=== PATIENT | female | born 1955 | race Caucasian/White ===

== ENCOUNTER → 2016-11-03 | Outpatient (CLI) | payer BC | LOC: LAB 07:22 | PROVIDERS: ATTEND Internal Medicine Critical Care Medicine | DX: B44.81 Allergic bronchopulmonary aspergillosis (principal); J45.998 Other asthma; J47.9 Bronchiectasis, uncomplicated; J30.9 Allergic rhinitis, unspecified | CPT/HCPCS: 87070; 87205 ==

== ENCOUNTER → 2017-03-24 | Outpatient (CLI) | payer BC ==
--- NOTE | 2017-03-24 10:32 | Diagnostic Imaging Report ---
PROCEDURE: CT sinuses without contrast TECHNIQUE: Multiple contiguous axial images were obtained through the sinuses without the use of intravenous contrast. Coronal and sagittal reformations were then performed. INDICATION: Sinus infection. FINDINGS: There is minimal mucosal thickening seen in the right mid ethmoidal air cells. The remaining ethmoidal air cells are clear. The maxillary sinuses are generally clear. There is evidence of prior sinonasal surgery suggested widening the drainage pathway of the maxillary sinuses on both sides which appears widely patent. The sphenoidal sinuses and frontal sinuses are clear. The mastoid air cells and middle ear cavities are clear. The nasal cavity demonstrates septal nasal deviation to the right side. There is mild mucosal thickening along the inferior turbinates. The nasal passages are patent. IMPRESSION: Minimal sinus disease. Suggestion of prior sinonasal surgery. Correlate with surgical history. Dictated by: Dictated on workstation # [id number]
== END ==
LOC: RAD 09:49
PROVIDERS: ATTEND Internal Medicine Critical Care Medicine
DX: J32.9 Chronic sinusitis, unspecified (principal)
CPT/HCPCS: 70486

== ENCOUNTER → 2017-04-09 | Outpatient (CLI) | payer BC ==
[~2017-04-09] MED LIST: RT-ALBUTEROL SULF 2.5 MG/3 ML PRE-MIX VIAL IH ONE
== END ==
LOC: RT 09:44
PROVIDERS: ATTEND Nurse Practitioner Family
DX: J45.909 Unspecified asthma, uncomplicated (principal); J47.9 Bronchiectasis, uncomplicated
CPT/HCPCS: 94060; 94726; 94729

== ENCOUNTER → 2017-04-24 | Outpatient (CLI) | payer BC ==
--- NOTE | 2017-04-24 13:09 | Diagnostic Imaging Report ---
PROCEDURE: CT chest without contrast. TECHNIQUE: Multiple contiguous axial images were obtained through the chest without the use of intravenous contrast. INDICATION: COPD, shortness of breath. FINDINGS: There is a peripheral area of consolidation seen in the lateral aspect of the right middle lobe measuring 4.1 x 1.1 x 3.7 cm. This could relate to pneumonia. In addition, there is minimal atelectasis in the lung bases anteriorly. There is no bronchiectasis or emphysema changes. No pleural or pericardial effusion. No significantly enlarged lymph nodes and no lymphadenopathy in the axilla. The thoracic aorta is normal in caliber. The osseous structures appear grossly unremarkable. IMPRESSION: Peripheral consolidation involving the lateral aspect of the right middle lobe may relate to pneumonia. Correlate clinically and with followup exam in four/six weeks to ensure resolution. Report was stat faxed to office of Silvia Porter APRN, @ 1:07 PM/mayra. Dictated by: Dictated on workstation # [id number]
== END ==
LOC: RAD 12:22
PROVIDERS: ATTEND Nurse Practitioner Family
DX: J47.9 Bronchiectasis, uncomplicated (principal); J44.9 Chronic obstructive pulmonary disease, unspecified
CPT/HCPCS: 71250

== ENCOUNTER 2017-05-19 13:41 | Emergency (ER) | payer BC ==
[~2017-05-19] VITALS: Ht 167.6 cm; Wt 79.4 kg
--- OUTSIDE RECORDS SUMMARY | 2017-05-19 14:09 | XMS REPORT ---
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 Problem terminal operator current use of insulin Z79.4 Active Problem Depression, major, recurrent, in remission F33.40 Active Assessment skilled nursing current use of insulin Z79.4 Active Assessment Allergic reaction caused by a drug, initial encounter T78.40XA Active Problem Osteoporosis M81.0 Active Assessment Diabetes 1.5, 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 Medications Medication Code System Code Instructions Start Date End Date Status Dosage Calcium 600+D [facility] [address]-66 May 18, 2011 SI tab(s) once a day Advair HFA [facility] [address]-28 115-21 MCG/ACT Inhalation Twice a day 2 puffs Temazepam [facility] [address]-58 30 mg May 18, 2011 SIG: PRN( as needed for sleep) Prilosec [facility] [address]-32 20 MG Orally Once a day 1 capsule Multivitamin [facility] [address] May 18, 2011 SIG: once a day Trulicity [facility] [address]-49 0.75 MG/0.5ML Subcutaneous once per week ( FridaysMar 01, 2016 Jun 29, 2016 0.5 ml O-Prcrzs-L-Cysteine [facility] [address]-37 600 MG Orally 2 X Day 1 capsule with a meal Lisinopril [facility] [address]-01 20 mg Orally Once a day May 18, 2011 1 tablet Levemir [facility] [address]-06 100 UNIT/ML Subcutaneous once a day Jan 09, 2016 20 units Montelukast Sodium [facility] [address]-76 10 MG Orally Once a day 1 tablet Claritin [facility] [address]-43 10 mg May 18, 2011 SI cap(s) once a day Zoloft [facility] [address]-40 50 mg Orally Once a day Feb 20, 2016 1 tablet Simvastatin [facility] [address]-06 20 mg Orally Once a day Feb 06, 2016 1 tablet in the evening NovoLog [facility] [address]-21 100 UNIT/ML Subcutaneous 3 times a day with meals Jan 09, 2016 5-15 units omega-3 polyunsaturated fatty acids [facility] 0 May 18, 2011 SI cap (s) once a day Ventolin [facility] 0 May 18, 2011 SIG: PRN(as needed for wheezing) Flonase [facility] 0 May 18, 2011 SI spray(s) intranasally once a day Procedures Procedure Coding System Code Date Office Visit, Est Pt., Level 3 CPT-4 30545 Mar 01, 2016 Vital Signs Date/Time: Mar 01, 2016 Cardiac Monitoring Heart Rate 88 bpm Weight 223.1 lbs Height 68 in BMI 33.92 Index Blood Pressure Diastolic 68 mmHg Blood Pressure Systolic 124 mmHg Results No Known Results Summary Purpose eClinicalWorks Submission
--- OUTSIDE RECORDS SUMMARY | 2017-05-19 14:09 | XMS REPORT ---
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 409421361 Assessment Type 1 diabetes mellitus with complication E10.8 Jan, Active 111001307 Problem retirement current use of insulin Z79.4 Active 454015957 Problem Osteoporosis M81.0 Active 42441808 ALLERGIES Unknown Allergies SOCIAL HISTORY No smoking Hx information available PLAN OF CARE VITAL SIGNS MEDICATIONS Unknown Medications RESULTS Name Result Date Reference Range LIPID PANEL 2016-01-31 Cholesterol, Total 242 100-199 Triglycerides 56 0-149 HDL Cholesterol 101 >39 VLDL Cholesterol Yash 11 5-40 LDL Cholesterol Calc 130 0-99 Comment: PROCEDURES Procedure Date Ordered Related Diagnosis Body Site ROUTINE VENIPUNCTURE 2016-01-31 N/A LIPID PANEL Jan 31, 2016 VENIPUNCT, ROUTINE* Jan 31, 2016 IMMUNIZATIONS No Known Immunizations
--- OUTSIDE RECORDS SUMMARY | 2017-05-19 14:09 | XMS REPORT ---
Author Author AURELIANO BOOKER Organization [employer] Address Unknown Phone Unavailable Care Team Providers Care Air Tool Operator Name Role Phone AURELIANO BOOKER Unavailable Allergies No Known Allergies Problems Problem Type Condition Code Onset Dates Condition Status Problem Need for prophylactic vaccination and inoculation, Influenza V04.81 Active Assessment Encounter for immunization Z23 Active Problem Acute sinusitis, unspecified 461.9 Active Medications No Known Medications Procedures Procedure Coding System Code Date SINGLE IMMUNIZATION ADMIN CPT-4 71631 Mar 06, 2015 FLUARIX QUAD (3 & UP)-GSK-2014 CPT-4 93297 Mar 06, 2015 Results No Known Results Immunizations Vaccine Administration Date FLUARIX QUAD (3 & UP)-GSK-2014Mar 06, 2015 Summary Purpose eClinicalWorks Submission
--- OUTSIDE RECORDS SUMMARY | 2017-05-19 14:09 | XMS REPORT ---
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 491082616 Assessment Encounter for immunization Z23 Jan, Active 838626003 Assessment Diabetes 1.5, managed as type 1 E13.9 Jan, Active 483298155 Problem retirement current use of insulin Z79.4 Active 739057248 Problem Osteoporosis M81.0 Active 63879407 ALLERGIES Substance Reaction Event Type Date Status Sulfa Drug rash Non Drug Allergy Jan, Active Pain Medication nausea and vomiting Non Drug Allergy Jan, Active SOCIAL HISTORY No smoking Hx information available PLAN OF CARE VITAL SIGNS Height 68 in 2016-02-06 Weight 229 lbs 2016-02-06 Heart Rate 88 bpm 2016-02-06 Respiratory Rate 16 2016-02-06 BMI 34.82 kg/m2 2016-02-06 Blood pressure systolic 130 mmHg 2016-02-06 Blood pressure diastolic 76 mmHg 2016-02-06 MEDICATIONS Medication Instructions Dosage Frequency Start Date End Date Duration Status Lisinopril 20 mg Orally Once a day 1 tablet 24h May, Active omega-3 polyunsaturated fatty acids SI cap(s) once a day May, Active Calcium 600+D SI tab(s) once a day May, Active Victoza 18 MG/3ML Subcutaneous Once a day 0.6mg x1 week then 1.2mg 24h Jan, Active Ventolin SIG: PRN(as needed for wheezing) May, Active Flonase SI spray(s) intranasally once a day May, Active Claritin 10 mg SI cap(s) once a day May, Active Simvastatin 20 mg Orally Once a day 1 tablet in the evening 24h Jan, Active W-Yxfwql-O-Cysteine 600 MG Orally 2 X Day 1 capsule with a meal Active Advair HFA 115-21 MCG/ACT Inhalation Twice a day 2 puffs 12h Active NovoLog 100 UNIT/ML Subcutaneous 3 times a day with meals 5-15 units Dec, Active Montelukast Sodium 10 MG Orally Once a day 1 tablet 24h Active Multivitamin SIG: once a day May, Active Levemir 100 UNIT/ML Subcutaneous once a day 20 units 24h Dec, Active Temazepam 30 mg SIG: PRN(as needed for sleep) May, Active Metformin HCl 500 MG Orally Twice a day (FOLLOW UP APR) 1 tablet Dec, Active Prilosec 20 MG Orally Once a day 1 capsule 24h Active RESULTS Name Result Date Reference Range A1C (IN HOUSE) 2016-02-06 A1C IN HOUSE 8.1 4.3 - 5.6 % Previous A1c Lot [id number] Exp date 11/26 MICROALBUMIN, URINE (IN HOUSE) 2016-02-06 MICROALBUMIN normal Lot # [id number] Exp date 03/28 Clarity clear Color yellow ALB 10mg/L CRE 50mg/dL A:C (IN HOUSE) <30mg/g Control Control Lot # Exp date PROCEDURES Procedure Date Ordered Related Diagnosis Body Site GLYCATED HEMOGLOBIN TEST Feb 06, 2016 MICROALBUMIN, SEMIQUANT Feb 06, 2016 SINGLE IMMUNIZATION ADMIN Feb 06, 2016 FLUARIX QUAD P-FREE 3 AND UP .50 2015Feb 06, 2016 Office Visit, Est Pt., Level 4 Feb 06, 2016 IMMUNIZATIONS Vaccine Route Administration Date Status FLUARIX QUAD P-FREE 3 AND UP .50 2015 IM Intramuscular Feb 06, 2016 Administered
--- OUTSIDE RECORDS SUMMARY | 2017-05-19 14:09 | XMS REPORT ---
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
--- OUTSIDE RECORDS SUMMARY | 2017-05-19 14:09 | XMS REPORT ---
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 [address]-43 50 mg Orally Once a day Feb 20, 2016 1 tablet Results No Known Results Summary Purpose eClinicalWorks Submission
--- OUTSIDE RECORDS SUMMARY | 2017-05-19 14:09 | XMS REPORT ---
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
--- OUTSIDE RECORDS SUMMARY | 2017-05-19 14:09 | XMS REPORT ---
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
--- OUTSIDE RECORDS SUMMARY | 2017-05-19 14:09 | XMS REPORT ---
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 047238592 Problem Asthma, severe J45.998 Active 683141317 Problem Depression, major, recurrent, in remission F33.40 Active 58799012 ALLERGIES Substance Reaction Event Type Date Status Sulfa Drug rash Non Drug Allergy May, Active Pain Medication nausea and vomiting Non Drug Allergy May, Active SOCIAL HISTORY No smoking Hx information available PLAN OF CARE Activity Details Follow Up prn Reason:next DM visit VITAL SIGNS Height 68 in 2016-06-05 Temperature 97.4 degrees Fahrenheit 2016-06-05 Heart Rate 106 bpm 2016-06-05 Respiratory Rate 18 2016-06-05 Blood pressure systolic 132 mmHg 2016-06-05 Blood pressure diastolic 68 mmHg 2016-06-05 MEDICATIONS Medication Instructions Dosage Frequency Start Date End Date Duration Status Prilosec 20 MG Orally Once a day 1 capsule 24h Active Multivitamin SIG: once a day May, Active Doxycycline Monohydrate 100 mg Orally every 12 hrs 1 capsule 12h May, Jun, 10 days Active Ventolin SIG: PRN(as needed for wheezing) May, Active Lisinopril 20 mg Orally Once a day 1 tablet 24h May, Active Prolia 60 MG/ML Subcutaneous every 6 months 60mg Jan, Active Simvastatin 20 mg Orally Once a day 1 tablet in the evening 24h Jan, Active Levemir 100 UNIT/ML 25 units Active NovoLog 100 UNIT/ML Subcutaneous 3 times a day with meals 5-15 units Dec, Active Flonase SI spray(s) intranasally once a day May, Active Advair HFA 115-21 MCG/ACT Inhalation Twice a day 2 puffs 12h Active Trulicity 0.75 MG/0.5ML Subcutaneous once per week (FRIDAYS 0.5 ml FebJun, 30 day(s) Active Levemir 100 UNIT/ML Subcutaneous once a day 20 units 24h Dec, Active Montelukast Sodium 10 MG Orally Once a day 1 tablet 24h Active G-Anzbvr-O-Cysteine 600 MG Orally 2 X Day 1 capsule with a meal Active Simvastatin 20 MG Orally Once a day 1 tablet in the evening 24h Active Zoloft 50 mg Orally Once a day 1 tablet 24h Active omega-3 polyunsaturated fatty acids SI cap(s) once a day May, Active Zoloft 50 mg Orally Once a day 1 tablet 24h Feb, Active Montelukast Sodium 10 MG TAKE ONE TABLET BY MOUTH ONCE DAILY. 30 Active NovoLog 100 UNIT/ML INJECT 5-15 UNITS 3 TIMES A DAY WITH MEALS SUBCUTANEOUSLY 22 Active Claritin 10 mg SI cap(s) once a day May, Active Calcium 600+D SI tab(s) once a day May, Active RESULTS No Results PROCEDURES Procedure Date Ordered Related Diagnosis Body Site Office Visit, Est Pt., Level 3 Jun 05, 2016 IMMUNIZATIONS No Known Immunizations
--- OUTSIDE RECORDS SUMMARY | 2017-05-19 14:10 | XMS REPORT ---
Author ENOCH De Jesus [facility] eClinicalWorks Address Unknown Phone Unavailable Care Team Providers Care Substation Operator Chief Name Role Phone ENOCH LALA Unavailable Allergies, Adverse Reactions, Alerts Substance Reaction Event Type Sulfa Drug Info Not Available Non Drug Allergy Pain Medication Info Not Available Non Drug Allergy Problems Problem Type Condition Code Onset Dates Condition Status Assessment Benign essential hypertension I10 Active Assessment Osteoporosis M81.0 Active Assessment Type 1 diabetes mellitus with complication E10.8 Active Assessment Allergic rhinitis, unspecified allergic rhinitis trigger, unspecified rhinitis seasonality J30.9 Active Assessment Moderate persistent asthma without complication J45.40 Active Assessment Gastroesophageal reflux disease without esophagitis K21.9 Active Medications Medication Code System Code Instructions Start Date End Date Status Dosage Advair HFA [facility] [address]-22 115-21 MCG/ACT Inhalation Twice a day 2 puffs Lisinopril [facility] [address]-72 20 mg May 18, 2011 SIG: once a day Metformin HCl [facility] [address]-95 500 MG Orally Twice a day Jan 09, 2016 1 tablet with meals Flonase [facility] 0 May 18, 2011 SI spray(s) intranasally once a day Temazepam [facility] [address]-29 30 mg May 18, 2011 SIG: PRN( as needed for sleep) Ventolin [facility] 0 May 18, 2011 SIG: PRN(as needed for wheezing) Calcium 600+D [facility] [address]-53 May 18, 2011 SI tab(s) once a day Multivitamin [facility] [address] May 18, 2011 SIG: once a day Montelukast Sodium [facility] [address]-80 10 MG Orally Once a day 1 tablet Prilosec [facility] [address]-35 20 MG Orally Once a day 1 capsule omega-3 polyunsaturated fatty acids [facility] 0 May 18, 2011 SI cap (s) once a day B-Zcohas-L-Cysteine [facility] [address]-38 600 MG Orally 2 X Day 1 capsule with a meal Claritin [facility] [address]-17 10 mg May 18, 2011 SI cap(s) once a day NovoLog [facility] [address]-98 100 UNIT/ML Subcutaneous 3 times a day with meals Jan 09, 2016 5-15 units Levemir [facility] [address]-25 100 UNIT/ML Subcutaneous once a day Jan 09, 2016 20 units Procedures Procedure Coding System Code Date COMPREHEN METABOLIC PANEL CPT-4 22210 Jan 09, 2016 ASSAY THYROID STIM HORMONE CPT-4 18571 Jan 09, 2016 COMPLETE CBC W/AUTO DIFF WBC CPT-4 64818 Jan 09, 2016 VENIPUNCT, ROUTINE* CPT-4 10290 Jan 09, 2016 ASSAY OF VITAMIN D CPT-4 89352 Jan 09, 2016 Office Visit, New Pt., Level 4 CPT-4 14395 Jan 09, 2016 Vital Signs Date/Time: Jan 09, 2016 Cardiac Monitoring Heart Rate 103 bpm Weight 226.4 lbs Height 68 in BMI 34.42 Index Blood Pressure Diastolic 78 mmHg Blood Pressure Systolic 142 mmHg Results No Known Results Summary Purpose eClinicalWorks Submission
--- OUTSIDE RECORDS SUMMARY | 2017-05-19 14:10 | XMS REPORT ---
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 911322746 Problem Asthma, severe J45.998 Active 631098219 Problem Depression, major, recurrent, in remission F33.40 Active 01681137 ALLERGIES Substance Reaction Event Type Date Status Sulfa Drug rash Non Drug Allergy Jul, Active Pain Medication nausea and vomiting Non Drug Allergy Jul, Active SOCIAL HISTORY Never Assessed PLAN OF CARE Activity Details Follow Up 3 Months Reason:DM visit VITAL SIGNS Height 68 in 2016-07-18 Weight 224.1 lbs 2016-07-18 Temperature 97.7 degrees Fahrenheit 2016-07-18 Heart Rate 80 bpm 2016-07-18 Respiratory Rate 16 2016-07-18 BMI 34.07 kg/m2 2016-07-18 Blood pressure systolic 124 mmHg 2016-07-18 Blood pressure diastolic 70 mmHg 2016-07-18 MEDICATIONS Medication Instructions Dosage Frequency Start Date End Date Duration Status Zoloft 50 mg Orally Once a day 1 tablet 24h Feb, Active Multivitamin SIG: once a day May, Active Simvastatin 20 MG Orally Once a day 1 tablet in the evening 24h Active Calcium 600+D SI tab(s) once a day May, Active G-Vjslki-K-Cysteine 600 MG Orally 2 X Day 1 capsule with a meal Active NovoLog 100 UNIT/ML Subcutaneous 3 times a day (340b PRICING) 5-15 units Dec, Active Levemir 100 UNIT/ML Subcutaneous Once a day (340b) INJECT 22 UNITS ONCE A DAY SUBCUTANEOUSLY Active Symbicort 160-4.5 MCG/ACT Inhalation Twice a day ([place] CARD)_ 2 puffs Jul, Active omega-3 polyunsaturated fatty acids SI cap(s) once a day May, Active Prilosec 20 MG Orally Once a day 1 capsule 24h Active Trulicity 0.75 MG/0.5ML Subcutaneous ONCE A WEEK (savings card) 0.5 ml Active Montelukast Sodium 10 MG Orally Once a day 1 tablet 24h Active Ventolin SIG: PRN(as needed for wheezing) May, Active Lisinopril 20 mg Orally Once a day 1 tablet 24h May, Active RESULTS Name Result Date Reference Range A1C (IN HOUSE) 2016-07-18 A1C IN HOUSE 7.6 4.3 - 5.6 % Previous A1c 8.1 Lot [id number] Exp date 03/2018 PROCEDURES Procedure Date Ordered Result Body Site ROUTINE VENIPUNCTURE 2016-07-18 N/A GLYCATED HEMOGLOBIN TEST July 18, 2016 COMPREHEN METABOLIC PANEL July 18, 2016 IMMUNIZATIONS No Known Immunizations MEDICAL (GENERAL) HISTORY Type Description Date Medical History Hypertension Medical History Diabetes- Insulin dependent dx age 21s (Dr. Martinez) Medical History High cholesterol Medical History Mitrovalve prolapse Medical History Osteoporosis- DEXA 2015 (cannot take Fosamax Medical History Asthma- severe (Vasquez) Medical History Bronchiectasis/Bronchiolitis Medical [facility] Medical History History of Depression- was taking Zoloft Surgical History Impacted [facility] 1975 Surgical History Tonsilectomy 11 years old Surgical History Bladder Tumor nonmalignant 1985 Surgical History Sinus Surgery 2009 Surgical History Repair of fracture patella left after fall 05/2016 Hospitalization History Pnuemonia 1999 Hospitalization History Left foot 5th metatarsal 11/28/2015 Hospitalization History [facility] -Left Patella Fx 05/2016
--- OUTSIDE RECORDS SUMMARY | 2017-05-19 14:10 | XMS REPORT | Continuity of Care Document ---
Author Author [facility] Address Unknown Phone Unavailable Allergies There is no data. Medications There is no data. Problems Date Dx Coded Attending Type Code Diagnosis Diagnosed By 01/15/2011 ADDY THOMPSON DO V74.1 TB SCREENING 05/18/2011 ADDY THOMPSON DO 461.9 SINUSITIS ACUTE 03/24/2013 ADYD THOMPSON DO V04.81 FLU SHOT Procedures There is no data. Results There is no data. Encounters ACCT No. Visit Date/Time Discharge Status Pt. Type Provider Facility Loc./Unit Complaint [id number] 03/24/2013 14:17:00 03/24/2013 23:59:59 CLS Outpatient ADDY THOMPSON DO
[2017-05-19] MEDS ORDERED: DOXY100C2 (14:23)
[2017-05-19] MEDS ORDERED: OSEL75CA15 (14:23)
[2017-05-19] MEDS ORDERED: INSU100V5 (14:23)
[2017-05-19] MEDS ORDERED: KETOROLAC 30 MG/ML VIAL IM ONE (14:45)
--- NOTE | 2017-05-19 14:46 | ED Respiratory ---
General Chief Complaint: Cough/Cold/Flu Symptoms Stated Complaint: WHEEZING,COUGHING Nursing Triage Note: ARRIVED VIA AMB TO ROOM 08. COMPLAINS OF NOT FEELING WELL FOR SEVERAL DAYS. HAS BEEN TESTED FOR THE FLU WHICH WAS NEG. STATES SHE STILL DOES NOT FEEL WELL AND HAS DEVELOPED A WHEEZE. HAS BEEN ON TAMIFLU AND HAD HER THROAT STRETCHED ON FRIDAY. CALLED [facility] OFFICE WHO TOLD HER TO COME TO THE ER. (BERNICE STARKS MEDICAL STUDENT) History of Present Illness Time seen by provider: 14:39 Initial Comments Pt is a 61 yo female with a PMH of Asthma, COPD, Aspergillosis c/o flu-like sx for the past 4 days. Pt states that she had been exposed to known Influenza contact (her mother) and on Friday went to an urgent care and received Tamiflu and Doxycycline, which she is still taking. Reports that her fevers and chills got better but she developed worsening wheezing and SOB. Pt has taken her Symbicort and Spiriva 4 times today, last at noon. Pt today is c/o sore throat, myalgias, cough, and SOB. Denies any CP, N/V/D, hemoptysis, or any other associated sx. (BERNICE STARKS MEDICAL STUDENT) Initial Comments I saw and examined the patient alongside the student doctor and agree with the history and physical exam. (JESSY LORENZ) Allergies and Home Medications Allergies Coded Allergies: Sulfa (Sulfonamide Antibiotics) (Verified Allergy, Unknown, RASH, 03/07/17 ) Home Medications Doxycycline Hyclate 100 Mg Capsule, (Reported) Insulin Determir 1,000 Units/10 Ml Soln, (Reported) Oseltamivir Phosphate 75 Mg Capsule, (Reported) Constitutional: chills, malaise EENTM: throat pain, No ear discharge, No hearing loss, No eye pain, No vision loss Respiratory: cough, dyspnea on exertion, No hemoptysis, short of breath, No stridor, wheezing Cardiovascular: No chest pain, No edema, No palpitations Gastrointestinal: No abdominal pain, No constipation, No diarrhea, No nausea, No vomiting Genitourinary: no symptoms reported, No dysuria, No frequency Musculoskeletal: no symptoms reported, No back pain, No joint pain Skin: no symptoms reported, No change in color, No change in hair/nails, No dryness Psychiatric/Neurological: No Symptoms Reported Hematologic/Lymphatic: No Symptoms Reported Immunological/Allergic: no symptoms reported (BERNICE STARKS MEDICAL STUDENT) All Other Systems Reviewed Negative Unless Noted: Yes (BERNICE STARKS MEDICAL STUDENT) Past Amcgtzq-Yaccmi-Zoknme Hx Patient Social History Recent Foreign Travel: No Contact w/Someone Who Travel: No Recent Infectious Disease Expo: No Recent Hopitalizations: No (BERNICE STARKS MEDICAL STUDENT) Seasonal Allergies Seasonal Allergies: Yes (BERNICE STARKS MEDICAL STUDENT) Surgeries History of Surgeries: Yes (DENTAL, THROAT STRETCHED) Surgeries: Nose, Orthopedic, Tonsillectomy (BERNICE STARKS MEDICAL STUDENT) Respiratory History of Respiratory Disorde: Yes Respiratory Disorders: Asthma, Chronic Bronchitis, COPD (BERNICE STARKS MEDICAL STUDENT) Cardiovascular History of Cardiac Disorders: Yes Cardiac Disorders: High Cholesterol, Hypertension (BERNICE STARKS MEDICAL STUDENT) Neurological History of Neurological Disord: No (BERNICE STARKS MEDICAL STUDENT) Genitourinary History of Genitourinary Disor: No (BERNICE STARKS MEDICAL STUDENT) Gastrointestinal History of Gastrointestinal Di: No (BERNICE STARKS MEDICAL STUDENT) Musculoskeletal History of Musculoskeletal Dis: No (BERNICE STARKS MEDICAL STUDENT) Endocrine History of Endocrine Disorders: Yes Endocrine Disorders: Diabetes, Insulin dep (BERNICE STARKS MEDICAL STUDENT) Cancer History of Cancer: No (BERNICE STARKS MEDICAL STUDENT) Psychosocial History of Psychiatric Problem: No (BERNICE STARKS MEDICAL STUDENT) Physical Exam Vital Signs Vital Sign - Last 12Hours 05/19/17 05/19/17 14:05 15:04 Temp 97.7 Pulse 90 Resp 18 B/P (MAP) 145/67 (93) Pulse Ox 98 O2 Delivery Room Air (JESSY LORENZ) Vital Signs Capillary Refill : Less Than 3 Seconds (BERNICE STARKS MEDICAL STUDENT) General Appearance: no apparent distress, other (ill-in appearance) HEENT: PERRL/EOMI, normal ENT inspection, TMs normal, No tonsillar exudate, other (dry mucous membranes) Neck: non-tender, full range of motion, supple, normal inspection Respiratory: chest non-tender, no respiratory distress, No crackles, No rales, No rhonchi, wheezing Cardiovascular: normal peripheral pulses, regular rate, rhythm, no edema, no murmur Gastrointestinal: normal bowel sounds, non tender, soft, no organomegaly, No guarding, No rebound Extremities: normal range of motion, normal inspection Neurologic/Psychiatric: alert, normal mood/affect, oriented x 3 Skin: damp, No ecchymosis, No pallor (BERNICE STARKS MEDICAL STUDENT) General Appearance: mild distress Eyes: Bilateral Eye Normal Inspection, Bilateral Eye PERRL, Bilateral Eye EOMI (JESSY LORENZ) Progress/Results/Core Measures Suspected Sepsis Recent Fever Within 48 Hours: No Infection Criteria Present: Suspected New Infection New/Unexplained Altered Menta: No Sepsis Screen: No Definite Risk Sepsis Diagnosis: SIRS Temperature:97.7 Pulse: 90 Respiratory Rate: 18 Laboratory Tests 05/19/17 14:47: White Blood Count 8.4 Blood Pressure 145 /67 Mean: 93 Laboratory Tests 05/19/17 14:47: Platelet Count 229 (BERNICE STARKS MEDICAL STUDENT) Results/Orders Lab Results Laboratory Tests Test 05/19/17 14:47 05/19/17 14:58 Range/Units White Blood Count 8.4 4.3-11.0 10^3/uL Red Blood Count 4.61 4.35-5.85 10^6/uL Hemoglobin 13.7 11.5-16.0 G/DL Hematocrit 44 35-52 % Mean Corpuscular Volume 96 80-99 FL Mean Corpuscular Hemoglobin 30 25-34 PG Mean Corpuscular Hemoglobin Concent 31 L 32-36 G/DL Red Cell Distribution Width 13.3 10.0-14.5 % Platelet Count 229 130-400 10^3/uL Mean Platelet Volume 10.7 H 7.4-10.4 FL Neutrophils (%) (Auto) 73 42-75 % Lymphocytes (%) (Auto) 15 12-44 % Monocytes (%) (Auto) 11 0-12 % Eosinophils (%) (Auto) 1 0-10 % Basophils (%) (Auto) 0 0-10 % Neutrophils # (Auto) 6.1 1.8-7.8 X 10^3 Lymphocytes # (Auto) 1.3 1.0-4.0 X 10^3 Monocytes # (Auto) 1.0 0.0-1.0 X 10^3 Eosinophils # (Auto) 0.0 0.0-0.3 10^3/uL Basophils # (Auto) 0.0 0.0-0.1 10^3/uL Sodium Level 137 135-145 MMOL/L Potassium Level 3.8 3.6-5.0 MMOL/L Chloride Level 99 98-107 MMOL/L Carbon Dioxide Level 25 21-32 MMOL/L Anion Gap 13 5-14 MMOL/L Blood Urea Nitrogen 11 7-18 MG/DL Creatinine 0.83 0.60-1.30 MG/DL Estimat Glomerular Filtration Rate > 60 BUN/Creatinine Ratio 13 Glucose Level 380 H 70-105 MG/DL Calcium Level 9.1 8.5-10.1 MG/DL Total Bilirubin 0.3 0.1-1.0 MG/DL Aspartate Amino Transf (AST/SGOT) 28 5-34 U/L Alanine Aminotransferase (ALT/SGPT) 28 0-55 U/L Alkaline Phosphatase 87 40-136 U/L C-Reactive Protein High Sensitivity 1.19 H 0.00-0.50 MG/DL Total Protein 6.7 6.4-8.2 GM/DL Albumin 3.6 3.2-4.5 GM/DL Blood Gas Puncture Site L BRACH Blood Gas Patient Temperature 97.1 Arterial Blood pH 7.42 7.37-7.43 Arterial Blood Partial Pressure CO2 41 35-45 MMHG Arterial Blood Partial Pressure O2 69 L 79-93 MMHG Arterial Blood HCO3 26 23-27 MMOL/L Arterial Blood Total CO2 27.3 21.0-31.0 MMOL/L Arterial Blood Oxygen Saturation 96 94-100 % Arterial Blood Base Excess 1.8 -2.5-2.5 MMOL/L Ajay Test YES-POS Blood Gas Ventilator Setting NO Blood Gas Inspired Oxygen RA (JESSY LORENZ) My Orders Orders - JESSY LORENZ Cbc With Automated Diff (05/19/17 14:38) Comprehensive Metabolic Panel (05/19/17 14:38) Hs C Reactive Protein (05/19/17 14:38) Chest Pa/Lat (2 View) (05/19/17 14:38) Ketorolac Injection (Toradol Injection) (05/19/17 14:45) Albuterol Pre-Mix Nebs (Rt) (Proventil (05/19/17 14:47) Albuterol/Ipra Inhalation Soln (Duoneb I (05/19/17 15:00) Svn Sm Volume Nebulizer Rt-Rfs (05/19/17 14:47) Albuterol Pre-Mix Nebs (Rt) (Proventil (05/19/17 14:48) Albuterol/Ipra Inhalation Soln (Duoneb I (05/19/17 14:48) Arterial Blood Gas (05/19/17 14:58) (JESSY LORENZ) Medications Given in ED Current Medications Medications Dose Ordered Sig/[place] Route Start Time Stop Time Status Last Admin Dose Admin Albuterol/ Ipratropium 3 ml STK-MED ONCE .ROUTE 05/19/17 14:48 05/19/17 14:51 DC 05/19/17 15:00 3 ML Ketorolac Tromethamine 15 mg ONCE ONCE IM 05/19/17 14:45 05/19/17 14:46 DC 05/19/17 14:46 15 MG (JESSY LORENZ) Vital Signs/I&O Vital Sign - Last 12Hours 05/19/17 05/19/17 14:05 15:04 Temp 97.7 Pulse 90 Resp 18 B/P (MAP) 145/67 (93) Pulse Ox 98 96 O2 Delivery Room Air (JESSY LORENZ) Vital Signs/I&O Capillary Refill : Less Than 3 Seconds (BERNICE STARKS MEDICAL STUDENT) Blood Pressure Mean: 93 Progress Note #1: Time: 14:59 Progress Note I examine the patient alongside with the medical student and agree with his history, review of systems and physical exam. I agree with assessment and plan that the patient likely has influenza suggested being treated for outpatient and with this level of albuterol 4 times a day she is still quite wheezy audibly so we'll start with some albuterol and DuoNeb given ABG and consider inpatient management. We'll also get an x-ray basic labs looking for possibility of pneumonia despite her doxycycline use. Progress Note #2: Time: 16:27 Progress Note Patient's breathing is significantly improved after the breathing treatment over she still having a little wheezing. She has known influenza. She may benefit from a low-dose steroid for her COPD. She should continue her doxycycline and finish out the Tamiflu. She has some questionable infiltrates seen on chest x-ray which are not very appreciable but the doxycycline would be appropriate therapy. (JESSY LORENZ) Diagnostic Imaging Diagonstic Imaging: Xray Plain Films/CT/US/NM/MRI: chest Comments VIA [facility]. [place], [place] NAME: MIN [facility] REC#: [id number] PT STATUS: REG ER : 1955 PHYSICIAN: JESSY LORENZ MD ADMIT DATE: 05/19/17/ER Draft Date of Exam:05/19/17 CHEST PA/LAT (2 VIEW) INDICATION: Lower respiratory infection. EXAMINATION: PA and lateral chest. FINDINGS: The heart size and pulmonary vascularity are normal. There is a questionable tiny patchy infiltrate at the right lateral lung base and along the left heart border. IMPRESSION: Questionable small bilateral patchy alveolar infiltrates. Dictated on workstation # [id number] Dict: 05/19/17 1549 Trans: 05/19/17 1556 [id number] Interpreted by: GALILEO MARR MD Electronically signed by: Reviewed: Reviewed by Me (JESSY LORENZ) Departure Impression Impression: Primary Impression: Influenza Additional Impression: COPD with acute exacerbation Disposition: HOME, SELF-CARE Condition: Improved Departure-Patient Inst. Decision time for Depature: 16:36 (JESSY LORENZ) Referrals: ADDY THOMPSON DO (PCP) Primary Care Physician ENOCH LALA APRN (Family) Primary Care Physician Patient Instructions: Flu, Adult (DC) Add. Discharge Instructions: Drink plenty of fluids use vaporizers such as Vicks or Mentholatum and a humidifier at all times. Get some rest for the next week or 2. Expect another one to 2 weeks of flu. If you're not improving by the end of the week or she feel like your breathing is getting worse despite doing the breathing treatments every 6 hours then you should start the steroid Dosepak and get an appointment to see your primary care physician, appliance installer, urgent care or come back to the ER within the next day or 2. All discharge instructions reviewed with patient and/or family. Voiced understanding. Scripts Prednisone (Prednisone) 20 Mg Tab 40 MG PO DAILY for 5 Days, #10 TAB 0 Refills Prov: JESSY LORENZ 05/19/17 Copy Copies To 1: ADDY THOMPSON ROSS MEDICAL STUDENT May 19, 2017 14:46 JESSY LORENZ May 19, 2017 15:00
[2017-05-19] MEDS ORDERED: RT-ALBUTEROL SULF 2.5 MG/3 ML PRE-MIX VIAL INH STA (14:47)
[2017-05-19] MEDS ORDERED: RT-ALBUTEROL/IPRATROPIUM 3 ML (DUONEB) VIAL ONE (14:48)
[2017-05-19] MEDS ORDERED: RT-ALBUTEROL SULF 2.5 MG/3 ML PRE-MIX VIAL INH ONE (14:48)
[2017-05-19] MEDS ORDERED: RT-ALBUTEROL/IPRATROPIUM 3 ML (DUONEB) VIAL INH ONE (15:00)
[2017-05-19 15:02] LABS: BASOPHILS % (AUTO) 0 % (0-10); EOSINOPHILS % (AUTO) 1 % (0-10); HEMATOCRIT 44 % (35-52); HEMOGLOBIN 13.7 G/DL (11.5-16.0); LYMPHOCYTES # (AUTO) 1.3 X 10^3 (1.0-4.0); LYMPHOCYTES % (AUTO) 15 % (12-44); MEAN CORPUSCULAR HEMOGLOBIN 30 PG (25-34); MEAN CORPUSCULAR HGB CONC 31 G/DL (32-36); MEAN CORPUSCULAR VOLUME 96 FL (80-99); MEAN PLATELET VOLUME 10.7 FL (7.4-10.4); MONOCYTES % (AUTO) 11 % (0-12); NEUTROPHILS # (AUTO) 6.1 X 10^3 (1.8-7.8); NEUTROPHILS % (AUTO) 73 % (42-75); PLATELET COUNT 229 10^3/uL (130-400); RED BLOOD COUNT 4.61 10^6/uL (4.35-5.85); RED CELL DISTRIBUTION WIDTH 13.3 % (10.0-14.5); WHITE BLOOD COUNT 8.4 10^3/uL (4.3-11.0)
[2017-05-19 15:20] LABS: ABG BASE EXCESS 1.8 MMOL/L (-2.5-2.5); ABG OXYGEN SATURATION 96 % (94-100); ABG PCO2 41 MMHG (35-45); ABG PH 7.42 (7.37-7.43); ABG PO2 69 MMHG (79-93); ABG TCO2 27.3 MMOL/L (21.0-31.0)
[2017-05-19 15:21] LABS: ALLENS TEST YES-POS; INSPIRED O2 RA; PATIENT TEMP 97.1; VENTILATOR NO
[2017-05-19 15:29] LABS: ALANINE AMINOTRANSFERASE 28 U/L (0-55); ALBUMIN 3.6 GM/DL (3.2-4.5); ALKALINE PHOSPHATASE 87 U/L (40-136); BILIRUBIN,TOTAL 0.3 MG/DL (0.1-1.0); BUN/CREATININE RATIO 13; CALCIUM 9.1 MG/DL (8.5-10.1); CARBON DIOXIDE 25 MMOL/L (21-32); CHLORIDE 99 MMOL/L (98-107); CREATININE SERUM 0.83 MG/DL (0.60-1.30); GFR ESTIMATED > 60; GLUCOSE 380 MG/DL (70-105); POTASSIUM 3.8 MMOL/L (3.6-5.0); SODIUM 137 MMOL/L (135-145); TOTAL PROTEIN 6.7 GM/DL (6.4-8.2)
--- NOTE | 2017-05-19 15:56 | Diagnostic Imaging Report ---
INDICATION: Lower respiratory infection. EXAMINATION: PA and lateral chest. FINDINGS: The heart size and pulmonary vascularity are normal. There is a questionable tiny patchy infiltrate at the right lateral lung base and along the left heart border. IMPRESSION: Questionable small bilateral patchy alveolar infiltrates. Dictated by: Dictated on workstation # [id number]
[2017-05-19] MEDS ORDERED: PRD20T PO (16:41)
[2017-05-19 16:47] VITALS: BP 122/84
== END 2017-05-19 16:47 | disposition home or self-care (01) ==
LOC: EDUNIT# 13:41 → ER 13:43
DX: J11.1 Influenza due to unidentified influenza virus with other respiratory manifestations (principal); J44.1 Chronic obstructive pulmonary disease with (acute) exacerbation; E78.00 Pure hypercholesterolemia, unspecified; I10 Essential (primary) hypertension; E11.9 Type 2 diabetes mellitus without complications; Z79.4 Long term (current) use of insulin; Z90.89 Acquired absence of other organs
CPT/HCPCS: 36415; 71046; 80053; 82805; 85025; 86141; 94640; 96372; 99284

== ENCOUNTER 2017-05-30 14:00 | Outpatient (RCR) | payer BC ==
[2017-03-07 14:30] VITALS: BP 141/68
[2017-04-04 13:28] VITALS: BP 141/73
[2017-04-04] MEDS: OMALIZUMAB 150 MG (XOLAIR) VIAL FREE STOCK SQ SCH (13:47)
[2017-04-04 13:50] VITALS: BP 141/73
[2017-05-02 13:48] VITALS: BP 141/74
[2017-05-02 14:03] VITALS: BP 141/74
[2017-05-02] MEDS: OMALIZUMAB 150 MG (XOLAIR) VIAL FREE STOCK SQ SCH (14:03)
[~2017-05-30] VITALS: Ht 172.7 cm; Wt 100.7 kg
[~2017-05-30 14:00] MED LIST changes: +CATHETER FLUSH 10 ML SYR IV PRN; +DOXY100C2; +INSU100V5; +NS IV 1000 ML 1,000 ML IV SCH; +OMALIZUMAB SUB-Q 150 MG (XOLAIR) VIAL SQ SCH; +OSEL75CA15; +PRD20T PO; -RT-ALBUTEROL SULF 2.5 MG/3 ML PRE-MIX VIAL IH ONE
== END 2017-06-05 | disposition home or self-care (01) ==
LOC: SDC 14:00
PROVIDERS: ATTEND Internal Medicine Critical Care Medicine
DX: J45.998 Other asthma (principal)
CPT/HCPCS: 96372

== ENCOUNTER → 2017-06-10 | Outpatient (CLI) | payer BC ==
[~2017-06-10] MED LIST changes: -CATHETER FLUSH 10 ML SYR IV PRN; -NS IV 1000 ML 1,000 ML IV SCH; -OMALIZUMAB SUB-Q 150 MG (XOLAIR) VIAL SQ SCH
[2017-06-10 18:59] LABS: BASOPHILS # (AUTO) 0.1 10^3/uL (0.0-0.1); BASOPHILS % (AUTO) 1 % (0-10); EOSINOPHILS # (AUTO) 0.2 10^3/uL (0.0-0.3); EOSINOPHILS % (AUTO) 2 % (0-10); HEMATOCRIT 41 % (35-52); HEMOGLOBIN 13.7 G/DL (11.5-16.0); LYMPHOCYTES % (AUTO) 24 % (12-44); MEAN CORPUSCULAR HEMOGLOBIN 30 PG (25-34); MEAN CORPUSCULAR HGB CONC 34 G/DL (32-36); MEAN CORPUSCULAR VOLUME 90 FL (80-99); MEAN PLATELET VOLUME 10.1 FL (7.4-10.4); MONOCYTES # (AUTO) 0.8 X 10^3 (0.0-1.0); MONOCYTES % (AUTO) 10 % (0-12); NEUTROPHILS # (AUTO) 5.1 X 10^3 (1.8-7.8); NEUTROPHILS % (AUTO) 63 % (42-75); PLATELET COUNT 241 10^3/uL (130-400); WHITE BLOOD COUNT 8.1 10^3/uL (4.3-11.0)
--- NOTE | 2017-06-10 19:12 | Diagnostic Imaging Report ---
INDICATION: Cough x1 week. PA and lateral chest. FINDINGS: Heart size and pulmonary vascularity are normal. Lungs are clear. There are no effusions or pneumothoraces. IMPRESSION: No acute abnormalities in the chest. No change since . Dictated by: Dictated on workstation # [id number]
== END ==
LOC: RAD 18:25
PROVIDERS: ATTEND Internal Medicine Critical Care Medicine
DX: J47.9 Bronchiectasis, uncomplicated (principal); J18.9 Pneumonia, unspecified organism
CPT/HCPCS: 36415; 71046; 82164; 82785; 85025; 86003; 86038; 86430

== ENCOUNTER → 2017-06-23 | Outpatient (CLI) | payer BC ==
[~2017-06-23] MED LIST changes: +ACET600C5 PO; +BUDE10.2 IH; +CALC-794 PO; +CETI-267 PO; +DULA0.75 SQ; +GABA-486 PO; +INSU100V16 SQ; -INSU100V5; +INSU100V5 SQ; +IPRA3AMP IH; +LISI-552 PO; +MONT10TA21 PO; +MULT-974 PO; +OMEG-33 PO; +PANT40SU PO; +SERT50TA2 PO; +SIMV20TA3 PO; +TIOT4MIS5 IH; +TRIA10.8 NS
--- NOTE | 2017-06-23 11:15 | Diagnostic Imaging Report ---
INDICATION: Bilateral lower extremity edema. PROCEDURE: US LE venous duplex, bilateral. TECHNIQUE: Multiple real-time grayscale images were obtained over the lower extremities in various projections, bilaterally. Additional duplex Doppler and color Doppler images were also obtained. There is no evidence of a right or left lower DVT. Both lower extremity deep venous systems demonstrate normal compressibility with normal response to augmentation and Valsalva. No fluid collection or mass is detected. IMPRESSION: No evidence of right or left lower extremity DVT. Dictated by: Dictated on workstation # [id number]
== END ==
LOC: RAD 10:07
PROVIDERS: ATTEND Nurse Practitioner Family
DX: R60.0 Localized edema (principal); J44.9 Chronic obstructive pulmonary disease, unspecified
CPT/HCPCS: 93970

== ENCOUNTER → 2017-06-26 | Outpatient (CLI) | payer BC ==
[~2017-06-26] MED LIST changes: +CATHETER FLUSH 10 ML SYR IV PRN; +IOHEXOL 350 MG/ML 150 ML (OMNIPAQUE 350) VIAL IV ONE; +NS 250 ML (IVPB) BAG IV ONE
--- NOTE | 2017-06-26 17:15 | Diagnostic Imaging Report ---
PROCEDURE: CT angiography of the chest with contrast. TECHNIQUE: Multiple contiguous axial images were obtained through the chest after uneventful bolus administration of intravenous contrast. Reconstructed CTA MIP acquisitions were also performed. INDICATION: Bronchiectasis. Difficulty breathing. Recent cough. FINDINGS: The lungs are well expanded. No mass or infiltrate is seen. There is minimal basilar atelectasis or scarring. There is mild cylindrical bronchiectasis, bilaterally, with no parabronchial thickening. There is no interstitial lung disease. There is no effusion or pneumothorax. There is no aortic aneurysm or dissection. There is no pulmonary embolus. There is no abnormal dilatation or tapering of the pulmonary arteries. There is a hiatal hernia. IMPRESSION: Minimal cylindrical bronchiectasis. There is linear atelectasis or scarring at the lung bases, slightly improved from 04/24/2017. There is no pulmonary embolus. Dictated by: Dictated on workstation # [id number]
== END ==
LOC: RAD 14:54
PROVIDERS: ATTEND Nurse Practitioner Family
DX: J47.9 Bronchiectasis, uncomplicated (principal)
CPT/HCPCS: 71275

== ENCOUNTER 2017-07-14 20:00 | Outpatient (CLI) | payer BC ==
[~2017-07-14 20:00] MED LIST changes: -CATHETER FLUSH 10 ML SYR IV PRN; -IOHEXOL 350 MG/ML 150 ML (OMNIPAQUE 350) VIAL IV ONE; -NS 250 ML (IVPB) BAG IV ONE
== END 2017-07-15 06:15 | disposition home or self-care (01) ==
LOC: SLEEP 20:00
PROVIDERS: ATTEND Nurse Practitioner Family
DX: G47.33 Obstructive sleep apnea (adult) (pediatric) (principal); G47.10 Hypersomnia, unspecified; G47.50 Parasomnia, unspecified; E66.9 Obesity, unspecified
CPT/HCPCS: 95810

== ENCOUNTER 2017-07-21 09:15 | Outpatient (RCR) | payer BC ==
[2017-08-26 13:00] VITALS: BP 141/62
[2017-08-26 13:49] VITALS: BP 120/70
[2017-08-28 13:07] VITALS: BP 140/62
[2017-08-28 14:00] VITALS: BP 120/68
[2017-09-02 13:00] VITALS: BP 150/70
[2017-09-02 14:00] VITALS: BP 120/60
[2017-09-09 12:55] VITALS: BP 121/70
[2017-09-09 14:03] VITALS: BP 132/60
[2017-09-11 13:05] VITALS: BP 130/60
[2017-09-11 14:00] VITALS: BP 130/70
[2017-09-16 13:00] VITALS: BP 130/60
[2017-09-16 13:45] VITALS: BP 130/60
[2017-09-18 13:05] VITALS: BP 147/60
[2017-09-18 14:00] VITALS: BP 115/60
[2017-09-23 13:00] VITALS: BP 130/70
[2017-09-23 14:00] VITALS: BP 120/70
[2017-09-25 13:05] VITALS: BP 140/70
[2017-09-25 14:03] VITALS: BP 140/72
[2017-09-30 13:12] VITALS: BP 122/50
[2017-09-30 13:55] VITALS: BP 118/50
[2017-10-02 10:03] VITALS: BP 130/60
[2017-10-02 13:00] VITALS: BP 130/60
[2017-10-07 13:00] VITALS: BP 136/60
[2017-10-07 14:00] VITALS: BP_SYST 100; BP_SYST 120; BP_DIAS 40; BP_DIAS 80
[2017-10-09 12:55] VITALS: BP 100/60
[2017-10-09 13:55] VITALS: BP 122/63
[2017-10-14 13:00] VITALS: BP 115/60
[2017-10-14 14:00] VITALS: BP 124/60
[2017-10-16 13:00] VITALS: BP 120/80
[2017-10-16 13:55] VITALS: BP 120/58
== END 2017-10-19 | disposition home or self-care (01) ==
LOC: PULM 09:15
PROVIDERS: ATTEND Nurse Practitioner Family
DX: J47.9 Bronchiectasis, uncomplicated (principal); R06.00 Dyspnea, unspecified
CPT/HCPCS: 99211

== ENCOUNTER 2017-08-21 14:35 | Outpatient (RCR) | payer BC ==
[2017-06-17 12:57] VITALS: BP 133/76
[2017-06-17] MEDS: OMALIZUMAB 150 MG (XOLAIR) VIAL FREE STOCK SQ SCH (13:25)
[2017-07-21] MEDS: OMALIZUMAB 150 MG (XOLAIR) VIAL FREE STOCK SQ SCH (10:45)
[2017-07-21 10:50] VITALS: BP 139/73
[~2017-08-21] VITALS: Ht 167.6 cm; Wt 103.4 kg
[2017-08-21 15:05] VITALS: BP 131/65
== END 2017-09-15 | disposition home or self-care (01) ==
LOC: SDC 14:35
PROVIDERS: ATTEND Internal Medicine Critical Care Medicine
DX: J45.998 Other asthma (principal)
CPT/HCPCS: 96372

== ENCOUNTER → 2017-10-09 | Outpatient (CLI) | payer BC ==
--- NOTE | 2017-10-09 16:34 | Diagnostic Imaging Report ---
EXAM: DEXA scan INDICATION: Screening for osteoporosis COMPARISON: There are no prior studies available for comparison. FINDINGS: The bone mineral density of the hips and spine was measured. The T score for the spine is -2.9. The T score for the right hip is -2.6. Both of these values indicate osteoporosis. The T score for the left hip is -2.3. This T score suggests severe osteopenia. 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 Dictated by: Dictated on workstation # [id number]
== END ==
LOC: RAD 11:58
PROVIDERS: ATTEND Nurse Practitioner Family
DX: Z13.820 Encounter for screening for osteoporosis (principal); M81.0 Age-related osteoporosis without current pathological fracture
CPT/HCPCS: 77080

== ENCOUNTER 2017-11-19 15:02 | Outpatient (RCR) | payer BC ==
[2017-09-18 14:15] VITALS: BP 135/82
[2017-09-18] MEDS: OMALIZUMAB SUB-Q 150 MG (XOLAIR) VIAL SQ SCH (14:50)
[2017-10-16 14:42] VITALS: BP 145/72
[~2017-11-19] VITALS: Ht 167.6 cm; Wt 103.4 kg
[~2017-11-19 15:02] MED LIST changes: -IPRA3AMP IH; +IPRA3AMP31 IH
[2017-11-19] MEDS: OMALIZUMAB SUB-Q 150 MG (XOLAIR) VIAL SQ SCH (15:40)
[2017-11-19 15:45] VITALS: BP 126/66
== END 2017-12-17 | disposition home or self-care (01) ==
LOC: SDC 15:02
PROVIDERS: ATTEND Nurse Practitioner Family
DX: J45.998 Other asthma (principal)
CPT/HCPCS: 96372

== ENCOUNTER 2018-02-17 12:25 | Outpatient (RCR) | payer BC ==
[2017-12-18 13:36] VITALS: BP 148/69
[2017-12-18] MEDS: OMALIZUMAB SUB-Q 150 MG (XOLAIR) VIAL SQ SCH (13:36)
[2018-01-16 12:05] VITALS: BP 131/73
[2018-01-16] MEDS: OMALIZUMAB SUB-Q 150 MG (XOLAIR) VIAL SQ SCH (12:17)
[~2018-02-17] VITALS: Ht 167.6 cm; Wt 103.4 kg
[2018-02-17 12:25] VITALS: BP 150/63
[2018-02-17] MEDS: OMALIZUMAB SUB-Q 150 MG (XOLAIR) VIAL SQ SCH (12:49)
== END 2018-03-18 | disposition home or self-care (01) ==
LOC: SDC 12:25
PROVIDERS: ATTEND Nurse Practitioner Family
DX: J45.909 Unspecified asthma, uncomplicated (principal)
CPT/HCPCS: 96372

== ENCOUNTER → 2018-05-20 | Outpatient (CLI) | payer BC ==
--- NOTE | 2018-05-21 08:48 | Diagnostic Imaging Report ---
INDICATION: Routine screening. COMPARISON: 07/22/2013 and 09/15/2008. TECHNIQUE: 2D and 3D bilateral screening mammography was performed with CAD. FINDINGS: Scattered fibroglandular densities are identified bilaterally. The parenchymal pattern is stable. No mass or malignant appearing microcalcifications are seen. The axillae are unremarkable. IMPRESSION: No mammographic features suspicious for malignancy are identified. ACR BI-RADS Category 1: Negative. Result letter will be mailed to the patient. Note: At least 10% of breast cancer is not imaged by mammography. Dictated by: Dictated on workstation # [id number]
== END ==
LOC: RAD 11:04
PROVIDERS: ATTEND Nurse Practitioner Family
DX: Z12.31 Encounter for screening mammogram for malignant neoplasm of breast (principal)
CPT/HCPCS: 77067

== ENCOUNTER 2018-06-08 13:18 | Outpatient (RCR) | payer BC ==
[2018-03-24 12:00] VITALS: BP 138/67
[2018-05-01] MEDS: OMALIZUMAB 150 MG (XOLAIR) VIAL FREE STOCK SQ SCH (13:31)
[2018-05-01 13:40] VITALS: BP 134/67
[~2018-06-08] VITALS: Ht 167.6 cm; Wt 103.4 kg
[~2018-06-08 13:18] MED LIST changes: +OMALIZUMAB SUB-Q 150 MG (XOLAIR) VIAL SQ SCH
[2018-06-08] MEDS: OMALIZUMAB 150 MG (XOLAIR) VIAL FREE STOCK SQ SCH (13:55)
[2018-06-08 14:10] VITALS: BP 140/70
== END 2018-06-22 | disposition home or self-care (01) ==
LOC: SDC 13:18
PROVIDERS: ATTEND Nurse Practitioner Family
DX: J45.909 Unspecified asthma, uncomplicated (principal)
CPT/HCPCS: 96372

== ENCOUNTER 2018-12-21 15:02 | Outpatient (RCR) | payer BC ==
[2018-10-14] MEDS: OMALIZUMAB 150 MG (XOLAIR) VIAL FREE STOCK SQ SCH (13:55)
[2018-10-14 14:00] VITALS: BP 158/88
[2018-11-11 11:24] VITALS: BP 143/73
[2018-11-11] MEDS: OMALIZUMAB 150 MG (XOLAIR) VIAL FREE STOCK SQ SCH (11:47)
[~2018-12-21] VITALS: Ht 172.7 cm; Wt 106.6 kg
[~2018-12-21 15:02] MED LIST changes: -OMALIZUMAB SUB-Q 150 MG (XOLAIR) VIAL SQ SCH
[2018-12-21 15:50] VITALS: BP 124/58
[2018-12-21] MEDS: OMALIZUMAB 150 MG (XOLAIR) VIAL FREE STOCK SQ SCH (15:50)
== END 2019-01-12 | disposition home or self-care (01) ==
LOC: SDC 15:02
PROVIDERS: ATTEND Nurse Practitioner Family
DX: J45.909 Unspecified asthma, uncomplicated (principal)
CPT/HCPCS: 96372

== ENCOUNTER → 2019-04-22 | Outpatient (RCR) | payer BC ==
[2019-01-22] MEDS: OMALIZUMAB 150 MG (XOLAIR) VIAL FREE STOCK SQ SCH (13:55)
[2019-01-22 14:10] VITALS: BP 126/67
[2019-02-23] MEDS: OMALIZUMAB 150 MG (XOLAIR) VIAL FREE STOCK SQ SCH (10:32)
[2019-02-23 10:43] VITALS: BP 124/67
[2019-03-23 13:15] VITALS: BP 135/77
[2019-03-23] MEDS: OMALIZUMAB 150 MG (XOLAIR) VIAL FREE STOCK SQ SCH (13:44)
[~2019-04-22] VITALS: Ht 172 cm; Wt 106.0 kg
[2019-04-22] MEDS: OMALIZUMAB 150 MG (XOLAIR) VIAL FREE STOCK SQ SCH (13:09)
[2019-04-22 13:15] VITALS: BP 141/67
== END | disposition home or self-care (01) ==
LOC: SDC 01-22 13:39
PROVIDERS: ATTEND Nurse Practitioner Family
DX: J45.909 Unspecified asthma, uncomplicated (principal)
CPT/HCPCS: 96372

== ENCOUNTER 2019-07-27 14:41 | Outpatient (RCR) | payer BC, OTHER ==
[2019-05-21] MEDS: OMALIZUMAB 150 MG (XOLAIR) VIAL FREE STOCK SQ SCH (12:55)
[2019-05-21 13:02] VITALS: BP 122/62
[2019-06-29 15:30] VITALS: BP 134/64
[2019-06-29] MEDS: OMALIZUMAB 150 MG (XOLAIR) VIAL FREE STOCK SQ SCH (15:32)
[~2019-07-27] VITALS: Ht 172.7 cm; Wt 112.7 kg
[~2019-07-27 14:41] MED LIST changes: +SIMV20TA26 PO; -SIMV20TA3 PO
[2019-07-27] MEDS: OMALIZUMAB 150 MG (XOLAIR) VIAL FREE STOCK SQ SCH (14:53)
[2019-07-27 14:57] VITALS: BP 169/67
== END 2019-08-19 | disposition home or self-care (01) ==
LOC: SDC 14:41
PROVIDERS: ATTEND Nurse Practitioner Family
DX: J45.909 Unspecified asthma, uncomplicated (principal)
CPT/HCPCS: 96372

== ENCOUNTER → 2019-08-25 | Day surgery (SDC) | payer OTHER ==
[~2019-08-25] MED LIST changes: +OMALIZUMAB 150 MG (XOLAIR) VIAL FREE STOCK SQ SCH
[2019-08-25 15:25] VITALS: BP 141/63
== END | disposition home or self-care (01) ==
LOC: SDC 15:27
PROVIDERS: ATTEND Nurse Practitioner Family
DX: J45.909 Unspecified asthma, uncomplicated (principal)
CPT/HCPCS: 96372

== ENCOUNTER → 2019-09-14 | Outpatient (CLI) | payer OTHER ==
[~2019-09-14] MED LIST changes: -OMALIZUMAB 150 MG (XOLAIR) VIAL FREE STOCK SQ SCH
--- NOTE | 2019-09-14 16:31 | Diagnostic Imaging Report ---
INDICATION: Screening for osteoporosis. COMPARISON: 10/09/2017. FINDINGS: The bone mineral density of the hips and spine was measured. The T-score for the lumbar spine is -2.9. On the prior exam, the T-score was also -2.9. The total T-score for the left hip is -2.4 and for the right hip -2.6. Previously, the respective T-scores were -2.3 and -2.6. The T-score for each femoral neck is -2.7. Previously, the T-score for each femoral neck was -2.6. AP Spine L1-L4: [BMD (g/cm2): 0.850] [T-Score: -2.9] [Z-Score: -2.7] [BMD Previous: 0.857] [BMD % Change: -0.8] LT Hip Neck: [BMD (g/cm2): 0.658] [T-Score: -2.7] [Z-Score: -2.1] LT Hip Total: [BMD (g/cm2):0.710] [T-Score:-2.4] [Z-Score: -2.1] [BMD Previous: 0.713] [BMD % Change: -0.4] RT Hip Neck: [BMD (g/cm2):0.663] [T-Score:-2.7] [Z-Score:-2.1] RT Hip Total: [BMD (g/cm2):.675] [T-score:-2.6] [Z-Score:-2.4] [BMD Previous:0.677] [BMD % Change:-0.3] *Indicates significant change from prior examination based on 95% confidence level. World Health Organization criteria for BMD interpretation classify patients as Normal (T-score at or above -1.0), Osteopenic (T-score between -1.0 and -2.5) or Osteoporotic (T-score at or below -2.5). LIMITATIONS AND MODIFICATION: None. FRACTURE RISK (FRAX SCORE): The ten year probability of (%): Major Osteoporotic Fracture: [20.7] Hip Fracture: [4.7] IMPRESSION: 1. When compared to the previous study, there has been no significant change. There has been a slight decrease in the bone mineral measurements of the hips and femoral necks. All the T-score values with the exception of the total T-score for left hip do fall within the range of osteoporosis. The total T-score for left hip indicates severe osteopenia. 2. See below National Osteoporosis Foundation guidelines on when to potentially initiate pharmacologic therapy. Based on the National Osteoporosis Foundation Guidelines, pharmacologic treatment should be initiated in any of the following, unless clinical conditions suggest otherwise: * Any patient with prior fragility fracture of the hip or vertebrae. A spine fracture indicates 5X risk for subsequent spine fracture and 2X risk for subsequent hip fracture. * Osteoporosis (T-score <-2.5). * Postmenopausal women and men age 50 and older with low bone mass/osteopenia (T-score between -1.0 and -2.5) by DXA and 10-year major osteoporotic fracture greater than 20% or a 10-year probability of hip fracture greater than 3%. These fracture risks are supplied above in the FRAX score, if applicable. * Clinician judgement and/or patient preferences may indicate treatment for people with 10-year fracture probabilities above or below these levels. Dictated by: Dictated on workstation # [id number]
== END ==
LOC: RAD 12:38
PROVIDERS: ATTEND Nurse Practitioner Family
DX: M81.0 Age-related osteoporosis without current pathological fracture (principal)
CPT/HCPCS: 77080

== ENCOUNTER 2019-12-01 15:23 | Outpatient (RCR) | payer OTHER ==
[2019-09-28 14:15] VITALS: BP 143/67
[2019-10-29 11:15] VITALS: BP 124/60
[~2019-12-01 15:23] MED LIST changes: +OMALIZUMAB 150 MG (XOLAIR) VIAL FREE STOCK SQ SCH
[2019-12-01] MEDS ORDERED: OMALIZUMAB 150 MG (XOLAIR) VIAL FREE STOCK SQ SCH (15:30)
[2019-12-01 16:00] VITALS: BP 126/70
== END 2019-12-21 | disposition home or self-care (01) ==
LOC: SDC 15:23
PROVIDERS: ATTEND Nurse Practitioner Family
DX: J45.909 Unspecified asthma, uncomplicated (principal)
CPT/HCPCS: 96372

== ENCOUNTER → 2020-03-06 | Outpatient (CLI) | payer OTHER ==
[~2020-03-06] MED LIST changes: -OMALIZUMAB 150 MG (XOLAIR) VIAL FREE STOCK SQ SCH
--- NOTE | 2020-03-06 12:37 | Diagnostic Imaging Report ---
INDICATION: Routine screening. Comparison is made with prior mammogram 05/20/2018 and 07/22/2013. 2-D and 3-D bilateral screening mammography was performed with CAD. Scattered fibroglandular densities are identified bilaterally. There is a small nodular density in the retroareolar right breast just lateral to the nipple line on the CC view. This appears to be inferiorly located. This appears to be slightly more prominent than prior exam. No other masses are seen. No malignant appearing microcalcifications are identified. Axillae are unremarkable. IMPRESSION: BI-RADS 0 Right breast nodular density. Additional views are recommended for further evaluation. ACR BI-RADS Category 0: Incomplete. (Needs additional imaging evaluation). Result letter will be mailed to the patient. Note: At least 10% of breast cancer is not imaged by mammography. Dictated by: Dictated on workstation # [id number]
== END ==
LOC: RAD 10:07
PROVIDERS: ATTEND Nurse Practitioner Family
DX: Z12.31 Encounter for screening mammogram for malignant neoplasm of breast (principal); R92.8 Other abnormal and inconclusive findings on diagnostic imaging of breast
CPT/HCPCS: 77063; 77067

== ENCOUNTER → 2020-03-24 | Outpatient (CLI) | payer OTHER ==
--- NOTE | 2020-03-24 14:37 | Diagnostic Imaging Report ---
INDICATION: Right breast density. Patient presents for additional views. Correlation is made with recent screening study from 03/06/2020. Unilateral right 2-D and 3-D diagnostic mammography was performed with CAD. This includes spot compression CC and ML views as well as 90 degree lateral views. Additional views confirm the presence of a tiny circumscribed ovoid nodule in the retroareolar lower and slightly outer right breast. No other abnormalities are seen. IMPRESSION: BI-RADS 0 Circumscribed nodule in the lower outer retroareolar right breast. Further evaluation with ultrasound is recommended and will be performed today. ACR BI-RADS Category 0: Incomplete. (Needs additional imaging evaluation). Result letter will be mailed to the patient. Note: At least 10% of breast cancer is not imaged by mammography. Dictated by: Dictated on workstation # [id number]
--- NOTE | 2020-03-24 14:54 | Diagnostic Imaging Report ---
INDICATION: Abnormal right mammogram. Correlation is made with diagnostic mammogram earlier the same day. Sonographic interrogation of the retroareolar right breast was performed. There is a tiny cyst at the 7:00 retroareolar location measuring 3 mm x 4 mm x 3 mm. This likely accounts for the mammographic density. No other sonographic abnormality is seen. IMPRESSION: BI-RADS Category 2 Simple cyst 7:00 retroareolar right breast, likely accounting for the mammographic density. Patient may return to routine annual screening mammography. ACR BI-RADS Category 2: Benign findings. Result letter will be mailed to the patient. Note: At least 10% of breast cancer is not imaged by mammography. Dictated by: Dictated on workstation # [id number]
== END ==
LOC: RAD 13:45
PROVIDERS: ATTEND Nurse Practitioner Family
DX: N60.01 Solitary cyst of right breast (principal); R92.2 Inconclusive mammogram
CPT/HCPCS: 76642; 77065; G0279

== ENCOUNTER 2020-04-03 14:23 | Outpatient (RCR) | payer OTHER ==
[2020-01-06] MEDS: OMALIZUMAB 150 MG (XOLAIR) VIAL FREE STOCK SQ SCH (13:17)
[2020-01-06 13:20] VITALS: BP 125/79
[2020-02-07 13:58] VITALS: BP 135/62
[2020-02-07] MEDS: OMALIZUMAB 150 MG (XOLAIR) VIAL FREE STOCK SQ SCH (14:03)
[2020-03-06 10:48] VITALS: BP 144/70
[2020-03-06] MEDS: OMALIZUMAB 150 MG (XOLAIR) VIAL FREE STOCK SQ SCH (10:55)
[~2020-04-03] VITALS: Ht 172 cm; Wt 113600.0 kg
[~2020-04-03 14:23] MED LIST changes: -RT-ALBUTEROL SULF 2.5 MG/3 ML PRE-MIX VIAL INH ONE
[2020-04-03] MEDS: OMALIZUMAB 150 MG (XOLAIR) VIAL FREE STOCK SQ SCH (14:33)
[2020-04-03 14:35] VITALS: BP 149/66
== END 2020-04-05 | disposition home or self-care (01) ==
LOC: SDC 14:23
PROVIDERS: ATTEND Nurse Practitioner Family
DX: J45.909 Unspecified asthma, uncomplicated (principal)
CPT/HCPCS: 96372

== ENCOUNTER → 2020-04-03 | Outpatient (CLI) | payer OTHER ==
[~2020-04-03] MED LIST changes: +RT-ALBUTEROL SULF 2.5 MG/3 ML PRE-MIX VIAL INH ONE
== END ==
LOC: RT 15:30
PROVIDERS: ATTEND Nurse Practitioner Family
DX: J45.909 Unspecified asthma, uncomplicated (principal)
CPT/HCPCS: 94060; 94726; 94729

== ENCOUNTER → 2020-04-11 | Outpatient (CLI) | payer OTHER ==
[~2020-04-11] MED LIST changes: +CATHETER FLUSH 10 ML SYR IV PRN; +HOLD METFORMIN - RECEIVED CONTRAST 20 ML VIAL IV SCH; +IOHEXOL 350 MG/ML 100 ML (OMNIPAQUE 350) VIAL IV ONE; +NS 100 ML (IVPB) BAG IV ONE
[2020-04-11 08:35] LABS: BUN/CREATININE RATIO 16; CREATININE SERUM 0.76 MG/DL (0.60-1.30); GFR ESTIMATED > 60
--- NOTE | 2020-04-11 09:50 | Diagnostic Imaging Report ---
PROCEDURE: CT chest with contrast only. TECHNIQUE: Multiple contiguous axial images were obtained through the chest after administration of intravenous contrast. Auto Exposure Controls were utilized during the CT exam to meet ALARA standards for radiation dose reduction. INDICATION: Asthmatic patient with shortness of air. Compared with study 06/26/2017. FINDINGS: Thoracic aorta patent and nonaneurysmal. There is no central pulmonary arterial filling defect. There is a small hiatal hernia chronic. Some chronic scarring in the lung bases anteriorly in the right middle lobe and lingular segment left upper lobes inferiorly as well as very mild subpleural scarring in the right lower lobe. No new or acute pulmonary parenchymal abnormality. No dominant mass. No findings of edema, pneumonia or hemorrhage. No lymphadenopathy. No acute chest wall pathology. The visualized upper abdomen shows benign cyst near the hepatic dome and no acute appearing abnormality. IMPRESSION: Chronic areas of subpleural scarring bilaterally stable from comparison. No acute pathology or change. Dictated by: Dictated on workstation # [id number]
== END ==
LOC: RAD 08:45
PROVIDERS: ATTEND Nurse Practitioner Family
DX: J45.909 Unspecified asthma, uncomplicated (principal)
CPT/HCPCS: 36415; 71260; 82565; 84520

== ENCOUNTER 2020-07-07 12:58 | Outpatient (RCR) | payer OTHER ==
[2020-05-08 14:25] VITALS: BP 146/83
[2020-06-08 14:15] VITALS: BP 155/71
[~2020-07-07] VITALS: Ht 172 cm; Wt 113.6 kg
[~2020-07-07 12:58] MED LIST changes: -CATHETER FLUSH 10 ML SYR IV PRN; -HOLD METFORMIN - RECEIVED CONTRAST 20 ML VIAL IV SCH; -IOHEXOL 350 MG/ML 100 ML (OMNIPAQUE 350) VIAL IV ONE; -LISI-552 PO; +LISI20TA26 PO; -NS 100 ML (IVPB) BAG IV ONE; +OMALIZUMAB 150 MG (XOLAIR) VIAL FREE STOCK SQ SCH; +OMALIZUMAB SUB-Q 150 MG (XOLAIR) VIAL SQ SCH
[2020-07-07] MEDS ORDERED: OMALIZUMAB 150 MG (XOLAIR) VIAL FREE STOCK SQ SCH (13:00)
[2020-07-07 13:13] VITALS: BP 145/79
== END 2020-08-01 | disposition home or self-care (01) ==
LOC: SDC 12:58
PROVIDERS: ATTEND Nurse Practitioner Family
DX: J45.909 Unspecified asthma, uncomplicated (principal)
CPT/HCPCS: 96372

== ENCOUNTER 2020-11-03 14:07 | Outpatient (RCR) | payer OTHER ==
[2020-08-08 13:25] VITALS: BP 154/77
[2020-10-03] MEDS: OMALIZUMAB 150 MG (XOLAIR) VIAL FREE STOCK SQ SCH (13:20)
[2020-10-03 13:30] VITALS: BP 133/62
[~2020-11-03] VITALS: Ht 68 cm; Wt 113.6 kg
[~2020-11-03 14:07] MED LIST changes: -OMALIZUMAB SUB-Q 150 MG (XOLAIR) VIAL SQ SCH
[2020-11-03] MEDS: OMALIZUMAB 150 MG (XOLAIR) VIAL FREE STOCK SQ SCH (14:21)
[2020-11-03 14:29] VITALS: BP 166/85
== END 2020-11-06 | disposition home or self-care (01) ==
LOC: SDC 14:07
PROVIDERS: ATTEND Nurse Practitioner Family
DX: J45.909 Unspecified asthma, uncomplicated (principal)
CPT/HCPCS: 96372

== ENCOUNTER 2021-02-08 13:22 | Outpatient (RCR) | payer OTHER ==
[2020-12-13 12:00] VITALS: BP 132/69
[2020-12-13] MEDS: OMALIZUMAB 150 MG (XOLAIR) VIAL FREE STOCK SQ SCH (12:28)
[2021-01-11] MEDS: OMALIZUMAB 150 MG (XOLAIR) VIAL FREE STOCK SQ SCH (13:37)
[2021-01-11 13:46] VITALS: BP 141/63
[~2021-02-08] VITALS: Ht 152 cm; Wt 113.6 kg
[~2021-02-08 13:22] MED LIST changes: -DOXY100C2; +DOXY100C5; -OMALIZUMAB 150 MG (XOLAIR) VIAL FREE STOCK SQ SCH
[2021-02-08 13:26] VITALS: BP 138/70
[2021-02-08] MEDS: OMALIZUMAB 150 MG (XOLAIR) VIAL FREE STOCK SQ SCH (13:43)
== END 2021-03-13 | disposition home or self-care (01) ==
LOC: SDC 13:22
PROVIDERS: ATTEND Nurse Practitioner Family
DX: J45.909 Unspecified asthma, uncomplicated (principal)
CPT/HCPCS: 96372

== ENCOUNTER 2021-04-17 12:48 | Outpatient (RCR) | payer OTHER ==
[2021-03-15] MEDS: OMALIZUMAB 150 MG (XOLAIR) VIAL FREE STOCK SQ SCH (12:54)
[2021-03-15 12:56] VITALS: BP 136/84
[~2021-04-17] VITALS: Wt 113.6 kg
[2021-04-17] MEDS: OMALIZUMAB 150 MG (XOLAIR) VIAL FREE STOCK SQ SCH (13:10)
[2021-04-17 13:14] VITALS: BP 155/67
== END 2021-05-11 | disposition home or self-care (01) ==
LOC: SDC 12:48
PROVIDERS: ATTEND Nurse Practitioner Family
DX: J45.909 Unspecified asthma, uncomplicated (principal)
CPT/HCPCS: 96372

== ENCOUNTER 2021-09-11 11:06 | Outpatient (RCR) | payer OTHER ==
[~2021-09-11] VITALS: Wt 113.6 kg
[2021-09-11] MEDS ORDERED: NS IV 500 ML 500 ML IV SCH (11:30)
[2021-09-11] MEDS ORDERED: OMALIZUMAB SUB-Q 150 MG (XOLAIR) VIAL SQ SCH (11:30)
[2021-09-11 11:45] VITALS: BP 144/68
== END 2021-10-09 | disposition home or self-care (01) ==
LOC: SDC 11:06
PROVIDERS: ATTEND Internal Medicine Critical Care Medicine
DX: J45.40 Moderate persistent asthma, uncomplicated (principal)
CPT/HCPCS: 96372

== ENCOUNTER 2021-10-11 14:29 | Outpatient (RCR) | payer OTHER ==
[2021-10-11] MEDS ORDERED: OMALIZUMAB SUB-Q 150 MG (XOLAIR) VIAL SQ SCH (14:45)
[2021-10-11 15:10] VITALS: BP 134/69
== END 2021-11-08 | disposition home or self-care (01) ==
LOC: SDC 14:29
PROVIDERS: ATTEND Internal Medicine Critical Care Medicine
DX: J45.40 Moderate persistent asthma, uncomplicated (principal)
CPT/HCPCS: 96372

== ENCOUNTER → 2021-11-27 | Outpatient (CLI) | payer MEDICARE, OTHER ==
--- NOTE | 2021-11-27 13:43 | Diagnostic Imaging Report ---
INDICATION: Diabetic. Takes daily bone strengthening injections. Postmenopausal screening COMPARISON: 09/14/2019 FINDINGS: AP Spine L1-L4: [BMD (g/cm2): 0.917] [T-Score: -2.4] [Z-Score: -1.9] [BMD Previous: 0.857] [BMD % Change: 7.9] LT Hip Neck: [BMD (g/cm2): 0.738] [T-Score: -2.2] [Z-Score: -1.5] LT Hip Total: [BMD (g/cm2):0.790] [T-Score:-1.7] [Z-Score: -1.4] [BMD Previous: 0.713] [BMD % Change: 11.3] RT Hip Neck: [BMD (g/cm2):0.710] [T-Score:-2.4] [Z-Score:-1.7] RT Hip Total: [BMD (g/cm2):0.701] [T-score:-2.4] [Z-Score:-2.1] [BMD Previous:0.677] [BMD % Change:3.9] *Indicates significant change from prior examination based on 95% confidence level. World Health Organization criteria for BMD interpretation classify patients as Normal (T-score at or above -1.0), Osteopenic (T-score between -1.0 and -2.5) or Osteoporotic (T-score at or below -2.5). LIMITATIONS AND MODIFICATION: None. FRACTURE RISK (FRAX SCORE): The ten year probability of (%): Major Osteoporotic Fracture: [18.3] Hip Fracture: [3.4] IMPRESSION: 1. Osteopenia (Low bone mass). 2. mild interval improvement 3. See below National Osteoporosis Foundation guidelines on when to potentially initiate pharmacologic therapy. Based on the National Osteoporosis Foundation Guidelines, pharmacologic treatment should be initiated in any of the following, unless clinical conditions suggest otherwise: * Any patient with prior fragility fracture of the hip or vertebrae. A spine fracture indicates 5X risk for subsequent spine fracture and 2X risk for subsequent hip fracture. * Osteoporosis (T-score <-2.5). * Postmenopausal women and men age 50 and older with low bone mass/osteopenia (T-score between -1.0 and -2.5) by DXA and 10-year major osteoporotic fracture greater than 20% or a 10-year probability of hip fracture greater than 3%. These fracture risks are supplied above in the FRAX score, if applicable. * Clinician judgement and/or patient preferences may indicate treatment for people with 10-year fracture probabilities above or below these levels. Dictated by: Dictated on workstation # [id number]
== END ==
LOC: RAD 11:00
PROVIDERS: ATTEND Nurse Practitioner Family
DX: M85.80 Other specified disorders of bone density and structure, unspecified site (principal); E11.9 Type 2 diabetes mellitus without complications; Z78.0 Asymptomatic menopausal state
CPT/HCPCS: 77080

== ENCOUNTER → 2022-01-09 | Outpatient (RCR) | payer MEDICARE, OTHER ==
[~2022-01-09] VITALS: Wt 113.6 kg
[~2022-01-09] MED LIST changes: +OMALIZUMAB SUB-Q 150 MG (XOLAIR) VIAL SQ SCH
[2022-01-09 13:30] VITALS: BP 136/64
== END ==
LOC: SDC 13:04
PROVIDERS: ATTEND Internal Medicine Critical Care Medicine
DX: J45.40 Moderate persistent asthma, uncomplicated (principal)
CPT/HCPCS: 96372

== ENCOUNTER 2022-02-07 12:31 | Outpatient (RCR) | payer MEDICARE, OTHER ==
[~2022-02-07 12:31] MED LIST changes: -OMALIZUMAB SUB-Q 150 MG (XOLAIR) VIAL SQ SCH
[2022-02-07 12:35] VITALS: BP 147/66
[2022-02-07] MEDS ORDERED: OMALIZUMAB SUB-Q 150 MG (XOLAIR) VIAL SQ SCH (12:39)
== END 2022-02-08 | disposition home or self-care (01) ==
LOC: SDC 12:31
PROVIDERS: ATTEND Internal Medicine Critical Care Medicine
DX: J45.40 Moderate persistent asthma, uncomplicated (principal)
CPT/HCPCS: 96372

== ENCOUNTER 2022-03-14 10:40 | Outpatient (RCR) | payer MEDICARE, OTHER ==
[2022-03-14 11:10] VITALS: BP 139/99
[2022-03-14] MEDS ORDERED: OMALIZUMAB SUB-Q 150 MG (XOLAIR) VIAL SQ SCH (11:15)
== END 2022-04-10 | disposition home or self-care (01) ==
LOC: SDC 10:40
PROVIDERS: ATTEND Internal Medicine Critical Care Medicine
DX: J45.40 Moderate persistent asthma, uncomplicated (principal)
CPT/HCPCS: 96372

== ENCOUNTER 2022-04-22 12:17 | Outpatient (RCR) | payer MEDICARE, OTHER ==
[2022-04-22] MEDS ORDERED: OMALIZUMAB SUB-Q 150 MG (XOLAIR) VIAL SQ SCH (12:27)
[2022-04-22 12:36] VITALS: BP 145/65
== END 2022-05-11 | disposition home or self-care (01) ==
LOC: SDC 12:17
PROVIDERS: ATTEND Internal Medicine Critical Care Medicine
DX: J45.40 Moderate persistent asthma, uncomplicated (principal)
CPT/HCPCS: 96372

== ENCOUNTER 2022-05-24 13:52 | Outpatient (RCR) | payer MEDICARE, OTHER ==
[2022-05-24] MEDS ORDERED: OMALIZUMAB SUB-Q 150 MG (XOLAIR) VIAL SQ SCH (14:45)
[2022-05-24 14:56] VITALS: BP 125/76
== END 2022-06-11 | disposition home or self-care (01) ==
LOC: SDC 13:52
PROVIDERS: ATTEND Internal Medicine Critical Care Medicine
DX: J45.40 Moderate persistent asthma, uncomplicated (principal)
CPT/HCPCS: 96372

== ENCOUNTER 2022-06-24 13:38 | Outpatient (RCR) | payer MEDICARE, OTHER ==
[~2022-06-24] VITALS: Ht 172.7 cm; Wt 113.6 kg
[2022-06-24] MEDS ORDERED: OMALIZUMAB SUB-Q 150 MG (XOLAIR) VIAL SQ SCH (13:49)
[2022-06-24 14:10] VITALS: BP 143/64
== END 2022-07-09 | disposition home or self-care (01) ==
LOC: SDC 13:38
PROVIDERS: ATTEND Internal Medicine Critical Care Medicine
DX: J45.40 Moderate persistent asthma, uncomplicated (principal)
CPT/HCPCS: 96372

== ENCOUNTER 2022-07-22 11:43 | Outpatient (RCR) | payer MEDICARE, OTHER ==
[~2022-07-22 11:43] MED LIST changes: +MONT-47 PO; -MONT10TA21 PO
[2022-07-22] MEDS ORDERED: OMALIZUMAB SUB-Q 150 MG (XOLAIR) VIAL SQ SCH (11:58)
[2022-07-22 12:00] VITALS: BP 142/66
== END 2022-08-09 | disposition home or self-care (01) ==
LOC: SDC 11:43
PROVIDERS: ATTEND Internal Medicine Critical Care Medicine
DX: J45.40 Moderate persistent asthma, uncomplicated (principal)
CPT/HCPCS: 96372

== ENCOUNTER 2022-08-21 13:29 | Outpatient (RCR) | payer MEDICARE, OTHER ==
[~2022-08-21] VITALS: Wt 113.6 kg
[2022-08-21] MEDS ORDERED: OMALIZUMAB SUB-Q 150 MG (XOLAIR) VIAL SQ SCH (13:39)
[2022-08-21 13:50] VITALS: BP 146/75
== END 2022-09-08 | disposition home or self-care (01) ==
LOC: SDC 13:29
PROVIDERS: ATTEND Internal Medicine Critical Care Medicine
DX: J45.40 Moderate persistent asthma, uncomplicated (principal)
CPT/HCPCS: 96372

== ENCOUNTER 2022-09-19 13:45 | Outpatient (RCR) | payer MEDICARE, OTHER ==
[~2022-09-19] VITALS: Ht 170.2 cm; Wt 113.6 kg
[2022-09-19] MEDS ORDERED: OMALIZUMAB SUB-Q 150 MG (XOLAIR) VIAL SQ SCH (13:55)
[2022-09-19 14:15] VITALS: BP 131/63
== END 2022-10-09 | disposition home or self-care (01) ==
LOC: SDC 13:45
PROVIDERS: ATTEND Internal Medicine Critical Care Medicine
DX: J45.40 Moderate persistent asthma, uncomplicated (principal)
CPT/HCPCS: 96372

== ENCOUNTER 2022-10-23 14:21 | Outpatient (RCR) | payer MEDICARE, OTHER ==
[2022-10-23 14:50] VITALS: BP 136/60
[2022-10-23] MEDS ORDERED: OMALIZUMAB SUB-Q 150 MG (XOLAIR) VIAL SQ SCH (15:00)
== END 2022-10-23 15:01 | disposition home or self-care (01) ==
LOC: SDC 14:21
PROVIDERS: ATTEND Internal Medicine Critical Care Medicine
DX: J45.40 Moderate persistent asthma, uncomplicated (principal)
CPT/HCPCS: 96372

== ENCOUNTER 2022-11-22 13:34 | Outpatient (RCR) | payer MEDICARE, OTHER ==
[2022-11-20 14:15] VITALS: BP 0/0
[~2022-11-22] VITALS: Ht 170.2 cm; Wt 113.6 kg
[~2022-11-22 13:34] MED LIST changes: +OMALIZUMAB SUB-Q 150 MG (XOLAIR) VIAL SQ SCH
[2022-11-22] MEDS ORDERED: OMALIZUMAB SUB-Q 150 MG (XOLAIR) VIAL SQ SCH (14:00)
[2022-11-22 14:15] VITALS: BP 144/75
== END 2022-12-09 | disposition home or self-care (01) ==
LOC: SDC 13:34
PROVIDERS: ATTEND Internal Medicine Critical Care Medicine
DX: J45.40 Moderate persistent asthma, uncomplicated (principal)
CPT/HCPCS: 96372

== ENCOUNTER 2022-12-20 13:14 | Outpatient (RCR) | payer MEDICARE, OTHER ==
[~2022-12-20] VITALS: Ht 172.8 cm; Wt 113.6 kg
[~2022-12-20 13:14] MED LIST changes: -OMALIZUMAB SUB-Q 150 MG (XOLAIR) VIAL SQ SCH
[2022-12-20 13:15] VITALS: BP 127/53
[2022-12-20] MEDS ORDERED: OMALIZUMAB INJECTION 150 MG VIAL SQ SCH (13:30)
== END 2023-01-09 | disposition home or self-care (01) ==
LOC: SDC 13:14
PROVIDERS: ATTEND Internal Medicine Critical Care Medicine
DX: J45.40 Moderate persistent asthma, uncomplicated (principal)
CPT/HCPCS: 96372

== ENCOUNTER 2023-02-28 12:45 | Outpatient (RCR) | payer MEDICARE, OTHER ==
[~2023-02-28] VITALS: Wt 113.6 kg
[2023-02-28] MEDS ORDERED: OMALIZUMAB 150 MG INJ (XOLAIR) SQ SCH (13:20)
[2023-02-28 13:52] VITALS: BP 126/62
== END 2023-03-11 | disposition home or self-care (01) ==
LOC: SDC 12:45
PROVIDERS: ATTEND Internal Medicine Critical Care Medicine
DX: J45.40 Moderate persistent asthma, uncomplicated (principal)
CPT/HCPCS: 96372

== ENCOUNTER 2023-03-28 12:30 | Outpatient (RCR) | payer MEDICARE, OTHER ==
[2023-03-28] MEDS ORDERED: OMALIZUMAB 150 MG INJ (XOLAIR) SQ SCH (12:43)
[2023-03-28 12:45] VITALS: BP 138/85
== END 2023-04-10 | disposition home or self-care (01) ==
LOC: SDC 12:30
PROVIDERS: ATTEND Internal Medicine Critical Care Medicine
DX: J45.40 Moderate persistent asthma, uncomplicated (principal)
CPT/HCPCS: 96372